=== PATIENT | female | born 1945 | race Caucasian/White ===

== ENCOUNTER → 2022-03-17 07:39 | Outpatient (CLI) | payer MEDICARE, SELFPAY ==
--- NOTE | 2022-03-17 | DI.ECHO.S_ITS ---
[facility] +---------+ [facility] +---------+ : : [address] : [place] : : : : [id number] : : : : Phone: [phone]---------+ Echocardiogram Report + + :Name: SARA SHER Study Date: 03/17/2022 Height: 70 in : :[facility] ReadingLocation: Weight: 198 lb : : Gender: Female BSA: 2.1 m2 : :: 1945 Age: 76 yrs BP: 115/64 mmHg: :Reason For Study: Murmur : :Ordering Physician: KAILA : :LINUS Performed By: Giancarlo Kim : :Referring: LINUS BRIGHT : + + Interpretation Summary The ejection fraction is estimated to be 60-65%. Diastolic function could not be accurately assessed due to contradictory data. The right ventricle is normal in size and function. The left atrium is mildly dilated. There is mild aortic regurgitation. There is mild tricuspid regurgitation. The right ventricular systolic pressure is estimated to be at least 26 mmHg. The ascending aorta is moderately enlarged, 4.3 cm. Procedure: A two-dimensional transthoracic echocardiogram with color flow and Doppler was performed. The study quality was technically adequate. There is no prior echocardiogram noted for this patient. Left Ventricle: The left ventricle is normal in size and wall thickness. Left ventricular systolic function is normal. The ejection fraction is estimated to be 60-65%. There are no focal wall motion abnormalities. Diastolic function could not be accurately assessed due to contradictory data. Right Ventricle: The right ventricle is normal in size and function. Atria: The left atrium is mildly dilated. Right atrial size is normal. The interatrial septum grossly appears intact with no obvious evidence for an atrial septal defect. Mitral Valve: There is mild mitral annular calcification. There is no mitral regurgitation noted. Aortic Valve: The aortic valve is trileaflet. The aortic valve is mildly calcified. There is no aortic valve stenosis. There is mild aortic regurgitation. Tricuspid Valve: The tricuspid valve is normal in structure and function. There is mild tricuspid regurgitation. The right ventricular systolic pressure is estimated to be at least 26 mmHg based on an estimated right atrial pressure of 3 mm Hg. Pulmonic Valve: The pulmonic valve is normal in structure and function. There is a trace or physiologic amount of pulmonic regurgitation. Great Vessels: The aortic root is normal size. The ascending aorta is moderately enlarged. The IVC is of normal diameter and collapses greater than 50% with a sniff. This suggests a low right atrial pressure of 3 mm Hg. Pericardium/ Pleura There is no pericardial effusion. There is no pleural effusion. MMode/2D Measurements & Calculations LVIDd: 4.6 cm LVOT diam: 2.2 cm LVIDs: 3.1 cm Ao root diam: 3.7 cm FS: 33.4 % asc Aorta Diam: 4.3 cm IVSd: 1.0 cm LVPWd: 1.0 cm LV garcia. diameter/BSA (cm/m^2): 2.2 LV sys. diameter/BSA (cm/m^2): 1.5 LA A2 area: 22.0 cm2 RA long axis: 5.8 cm LA A4 area: 23.8 cm2 RA area: 16.5 cm2 LA length (vol): 6.0 cm RA vol: 39.8 ml LA vol: 73.6 ml RA : 19.2 ml/m2 LA vol index: 35.4 ml/m2 TAPSE: 2.3 cm Doppler Measurements & Calculations Ao V2 max: 179.7 cm/sec LVOT Max Deion: 99.4 cm/sec Ao V2 mean: 118.3 cm/sec LV V1 max P.0 mmHg Ao max P.9 mmHg LV V1 VTI: 19.0 cm Ao mean P.3 mmHg MAUDE(I,D): 2.3 cm2 Ao V2 VTI: 31.5 cm MAUDE(V,D): 2.1 cm2 sev ratio: 0.60 MAUDE indexed to BSA (cm^2/m^2): 1.1 MV E max deion: 65.7 cm/sec TR max deion: 241.1 cm/sec MV A max deion: 93.0 cm/sec TR max P.3 mmHg MV E/A: 0.71 Med Peak E' Deion: 6.0 cm/sec E/E' med: 10.9 Lat Peak E' Deion: 5.0 cm/sec E/E' lat: 13.1 E/e' average: 12.0 MV dec time: 0.21 sec SV(LVOT): 72.7 ml Reading Physician:12:55 PM
== END ==
PROVIDERS: PCP Nurse Practitioner Family; Referring Provider Nurse Practitioner Family; Visit Provider Nurse Practitioner Family
DX: I08.2 Rheumatic disorders of both aortic and tricuspid valves (principal); R01.1 Cardiac murmur, unspecified
CPT/HCPCS: 93306